=== PATIENT | female | born 1940 | race Caucasian/White ===

== ENCOUNTER 2022-03-11 08:06 | Day surgery (SDC) | payer MEDICARE, BC ==
[~2022-03-11] VITALS: Ht 170.2 cm; Wt 77.3 kg
[2022-03-11 08:15] VITALS: BP 129/73
[2022-03-11] MEDS ORDERED: FENTANYL CITRATE/PF 50 MCG/1 ML VIAL ONE (08:27)
[2022-03-11] MEDS ORDERED: MIDAZolam 1 MG/ML 5ML VIAL ONE (08:28)
[2022-03-11] MEDS ORDERED: AMLO5TAB16 PO (08:45)
[2022-03-11] MEDS ORDERED: ASPI-1265 PO (08:45)
[2022-03-11] MEDS ORDERED: ROSU10TA28 PO (08:45)
[2022-03-11] MEDS ORDERED: LISI10TA27 PO (08:45)
[2022-03-11] MEDS ORDERED: METO-395 PO (08:45)
[2022-03-11] MEDS ORDERED: UQORA PO (08:47)
[2022-03-11] MEDS ORDERED: OMEG-5 PO (08:48)
[2022-03-11] MEDS ORDERED: OSC500T PO (08:49)
[2022-03-11] MEDS ORDERED: CRAN500C4 PO (08:50)
[2022-03-11] MEDS ORDERED: CHOL20004 PO (08:50)
[2022-03-11] MEDS ORDERED: MELA1TAB52 PO (08:51)
[2022-03-11] MEDS ORDERED: BETA1TAB20 PO (08:52)
[2022-03-11 09:49] VITALS: BP 127/42
[2022-03-11 09:59] VITALS: BP 115/68
[2022-03-11 10:09] VITALS: BP 115/62
[2022-03-11 10:19] VITALS: BP 122/69
== END 2022-03-11 10:25 | disposition home or self-care (01) ==
LOC: GI LAB 08:06
PROVIDERS: ATTEND Internal Medicine Gastroenterology
DX: Z12.11 Encounter for screening for malignant neoplasm of colon (principal); I10 Essential (primary) hypertension; I25.2 Old myocardial infarction; G47.30 Sleep apnea, unspecified
CPT/HCPCS: G0121; G0500; J2250; J3010; J7030; Z7512; 45378; 99152; A4620